=== PATIENT | female | born 1995 | race American Indian/Alaskan Native ===

== ENCOUNTER 2017-07-05 04:56 | Outpatient (CLI) | payer MEDICAID ==
[2017-07-05] MEDS ORDERED: LACTATED RINGERS 1,000 ML IV ONE (05:22)
[2017-07-05 05:41] LABS: Bilirubin,Urine NEG (Negative); Blood,Urine SM (Negative); Color,Urine Straw (Yellow); Mucus,Urine FEW /HPF; Protein,Urine <15 mg/dL mg/dL (Negative); Urobilinogen,Urine < 2.0 mg/dL (<2.0)
[2017-07-05] MEDS: LACTATED RINGERS 1,000 ML IV SCH ×2 (08:12→13:12)
--- NOTE | 2017-07-05 10:36 | Ultrasound Report ---
ULTRASOUND RENAL BILATERAL HISTORY: Left abdomen pain, left flank pain. TECHNIQUE: transabdominal ultrasound with color Doppler interrogation. FINDINGS: An intrauterine is identified cephalic position. Both kidneys are normal size, contour, position and echogenicity. No evidence for cystic disease, mass or shadowing calculus. There is moderate right hydronephrosis and mild left hydronephrosis. This is presumably secondary to extrinsic compression from the fetus. The bladder is unremarkable. IMPRESSION: Bilateral hydronephrosis as described.
[2017-07-05 20:16] VITALS: BP 120/80
[2017-07-05 20:32] LABS: Basophils # (Auto) 0.1 K/mm3 (0.0-0.1); Basophils % (Auto) 0.7 % (0.0-1.8); Eosinophils # (Auto) 0.3 K/mm3 (0.0-0.4); Eosinophils % (Auto) 3.4 % (0.0-4.3); Hematocrit 36.5 % (30.3-42.9); Hemoglobin 12.2 gm/dl (10.1-14.3); Lymphocytes # (Auto) 1.6 K/mm3 (1.2-5.4); Lymphocytes % (Auto) 20.3 % (13.4-35.0); Mean Corpuscular HGB Conc 34 % (30-34); Mean Corpuscular Hemoglobin 33 pg (28-32); Mean Corpuscular Volume 98 fl (79-97); Monocytes # (Auto) 0.7 K/mm3 (0.0-0.8); Monocytes % (Auto) 9.1 % (0.0-7.3); Platelet Count 162 K/mm3 (140-440); Red Blood Count 3.72 M/mm3 (3.65-5.03); Red Cell Distribution Width 13.3 % (13.2-15.2)
[2017-07-05 20:51] LABS: BUN/Creatinine Ratio 15; Blood Urea Nitrogen 6 mg/dL (7-17); Calcium 8.7 mg/dL (8.4-10.2); Hemolysis Index 3
== END 2017-07-05 21:23 | disposition home or self-care (01) ==
LOC: TRG 04:56 → LD 08:53 → TRG 21:23
PROVIDERS: ATTEND Obstetrics & Gynecology
DX: O99.89 Other specified diseases and conditions complicating pregnancy, childbirth and the puerperium (principal); N13.30 Unspecified hydronephrosis; Z3A.26 26 weeks gestation of pregnancy
CPT/HCPCS: 36415; 59025; 76770; 80048; 81001; 85025; 96360; 96361; J7120

== ENCOUNTER 2017-10-11 11:58 | Inpatient (IN) | payer MEDICAID ==
[2017-10-11] MEDS ORDERED: MINERAL OIL PO PRN (13:25)
[2017-10-11] MEDS ORDERED: XYLOCAINE 2% INFILTRATI ONE (13:25)
[2017-10-11] MEDS ORDERED: BRETHINE IVP PRN (13:25)
[2017-10-11] MEDS ORDERED: SUBLIMAZE IV PRN (13:25)
[2017-10-11] MEDS ORDERED: BRETHINE SUB-Q PRN (13:25)
[2017-10-11] MEDS ORDERED: STADOL IV PRN (13:25)
[2017-10-11] MEDS ORDERED: PITOCin/NS 20 UNIT/1000ML DRIP 20 UNITS/1,000 ML BAG IV SCH (14:00)
[2017-10-11] MEDS ORDERED: PITOCin/NS 30 UNIT/500ML 30 UNITS/500 ML BAG IV SCH ×2 (14:00)
[2017-10-11 14:43] LABS: Bacteria,Urine 1+ /HPF (Negative); Bilirubin,Urine NEG (Negative); Blood,Urine LG (Negative); Color,Urine Yellow (Yellow); Mucus,Urine FEW /HPF; Urobilinogen,Urine < 2.0 mg/dL (<2.0)
[2017-10-11 15:34] LABS: Hematocrit 43.7 % (30.3-42.9); Hemoglobin 14.9 gm/dl (10.1-14.3); Mean Corpuscular HGB Conc 34 % (30-34); Mean Corpuscular Hemoglobin 33 pg (28-32); Mean Corpuscular Volume 98 fl (79-97); Red Blood Count 4.46 M/mm3 (3.65-5.03); Red Cell Distribution Width 13.2 % (13.2-15.2)
[2017-10-11 15:36] LABS: Platelet Count 156 K/mm3 (140-440)
[2017-10-11 15:46] LABS: Alanine Aminotransferase 11 units/L (7-56); Uric Acid 5.6 mg/dL (3.5-7.6)
--- NOTE | 2017-10-11 17:26 | History and Physical Report ---
History of Present Illness Date of examination: 10/11/17 Date of admission: 10/11/17 11:58 Chief complaint: Sent from office for IOL History of present illness: 22yo AA Fe VINCENT 10/05/2017 (LMP) 40w6d, sent from OB office today for direct admit (decreased FM x3 days, Elevated blood pressure 144/101, Equivical NST. Pt initiated late care with [facility] at 14 weeks gestation. 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 She was treated for BV with Cleocin 2% cream 04/11/17. She was referred to [facility] (late care and SGA & HC<3%, however she never went. 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 denies: abnormal PAP smear, chlamydia, gonorrhea, hepatitis B, hepatitis C, HIV, syphilis, trichomonas Family/Genetic History: none Social history: no significant social history, single, lives with family, full code. denies: smoking, alcohol abuse, prescription drug abuse, IV drug use - Obstetrical History Expected Date of Delivery: 10/05/17 Actual Gestation: 40 Week(s) 6 Day(s) : 2 Para: 0 Hx # Term Pregnancies: 0 Number of Pregnancies: 0 Spontaneous Abortions: 1 Induced : 0 Number of Living Children: 0 Medications and Allergies Allergies Allergy/AdvReac Type Severity Reaction Status Date / Time No Known Allergies Allergy Unverified 01/13/14 15:47 Home Medications Medication Instructions Recorded Confirmed Last Taken Type Pnv95/Ferrous Fumarate/FA 1 each PO QDAY #30 tablet 01/13/14 07/05/17 07/03/17 Rx [ Vitamins] HYDROcodone/APAP 5-325 [[place] 1 each PO Q6HR PRN #20 tablet 07/05/17 Unknown Rx 5/325] Active Meds: Active Medications Butorphanol Tartrate (Stadol) 2 mg IV Q2H PRN PRN Reason: Pain , Severe (7-10) Ephedrine Sulfate (Ephedrine Sulfate) 10 mg IV Q2M PRN PRN Reason: Hypotension Fentanyl (Sublimaze) 100 mcg IV Q2H PRN PRN Reason: Labor Pain Lactated Ringer's (Lactated Ringers) 1,000 mls @ 125 mls/hr IV DIRECT DINO Oxytocin/Sodium Chloride (Pitocin/Ns 20 Unit/1000ml Drip) 20 units in 1,000 mls @ 125 mls/hr IV DIRECT DINO Oxytocin/Sodium Chloride (Pitocin/Ns 30 Unit/500ml) 30 units in 500 mls @ 2 mls /hr IV TITR DINO; Protocol Oxytocin/Sodium Chloride (Pitocin/Ns 30 Unit/500ml) 30 units in 500 mls @ 1 mls /hr IV TITR DINO; Protocol Mineral Oil (Mineral Oil) 30 ml PO QHS PRN PRN Reason: Constipation Terbutaline Sulfate (Brethine) 0.25 mg SUB-Q ONCE PRN PRN Reason: Hyperstimulation/Hypertonicity Terbutaline Sulfate (Brethine) 0.25 mg IVP ONCE PRN PRN Reason: Hyperstimulation/Hypertonicity Review of Systems Eyes: normal appearance Cardiovascular: no chest pain, no shortness of breath Respiratory: no shortness of breath Breasts: mass Gastrointestinal: no nausea, no vomiting, no diarrhea, no constipation Genitourinary: normal appearance, contractions, no vaginal discharge, no leakage of fluid, no dysuria, no genital sores Neurological: no headaches, no double vision - Vital Signs Vital signs: Vital Signs Pulse BP 121 H 135/89 10/11/17 12:39 10/11/17 12:39 Temp Pulse Resp BP Pulse Ox 98.1 F 99 H 16 133/88 10/11/17 13:40 10/11/17 13:25 10/11/17 13:40 10/11/17 13:25 - Physical Exam Breasts: Positive: normal Cardiovascular: Regular rate, Normal S1, Normal S2, No murmurs Lungs: Positive: Clear to auscultation, Normal air movement Abdomen: Positive: normal appearance, soft, normal bowel sounds, other (gravid) Genitourinary (Female): Positive: normal external genitalia, normal perenium Vulva: both: normal Vagina: Positive: normal moisture Uterus: Positive: enlarged (gravid) Anus/Rectum: Positive: normal perianal skin Extremities: Positive: normal Deep Tendon Reflex Grade: Normal +2 - Obstetrical FHR: auscultation normal, category 1 Uterine Contraction Monitor Mode: External Cervical Dilatation: 3 Cervical Effacement Percentage: 80 station: -2 Uterine Contraction Pattern: Irregular Uterine Tone Measurement Phase: Resting Uterine Contraction Intensity: Mild Results Result Diagrams: 10/11/17 15:13 10/11/17 15:13 Abnormal lab results 10/11/17 10/11/17 10/11/17 Range/Units 14:08 15:13 15:13 Hgb 14.9 H (10.1-14.3) gm/dl Hct 43.7 H (30.3-42.9) % MCV 98 H (79-97) fl MCH 33 H (28-32) pg Creatinine 0.6 L (0.7-1.2) mg/dL Lactate Dehydrogenase 230 H (91-180) units/L Urine WBC (Auto) 40.0 H (0.0-6.0) /HPF All other labs normal. Assessment and Plan A: Term IUP at 40w6d Elevated B/P Category 1 tracing GBS Negative P: Admit to L&D Pitocin IOL PIH labs Anticipate
[2017-10-12] MEDS: LACTATED RINGERS 1,000 ML IV SCH ×2 (00:15→05:02)
[2017-10-12] MEDS ORDERED: fentaNYL-BUPIV 2 MCG/ML-0.125% 200 MCG/100 ML BAG EPIDURAL ONE (06:20)
[2017-10-12] MEDS ORDERED: NARCAN 2 MG/2 ML IV PRN (06:28)
[2017-10-12] MEDS ORDERED: fentaNYL-BUPIV 2 MCG/ML-0.125% 200 MCG/100 ML BAG EPIDURAL SCH (07:00)
--- NOTE | 2017-10-12 09:00 | Procedure Note ---
OB Delivery Note - Delivery Date of Delivery: 10/12/17 Surgeon: LANDY POWERS Estimated blood loss: 200cc - Vaginal Delivery presentation: vertex Delivery position: OA Intrapartum events: meconium, mult.variable deceleratio Delivery induction: oxytocin Delivery augmentation: rupture of membranes, pitocin Delivery monitor: external FHT, external uterine Route of delivery: Delivery placenta: spontaneous Delivery cord: 3 umbilical vessels Episiotomy: none Delivery laceration: 1st degree, vaginal side wall Delivery repair: vicryl Anesthesia: epidural Delivery comments: delivered OA and placed on Mom's chest for [id number] bonding and delayed cord clamping, cut by GrandMa - Infant A at 1 minute: 8 at 5 minutes: 9 Infant Gender: Male (3136gms)
[2017-10-12] MEDS ORDERED: PHENERGAN PO PRN (09:04)
[2017-10-12] MEDS ORDERED: PHENERGAN PR PRN (09:04)
[2017-10-12] MEDS ORDERED: TUCKS PAD TP PRN (09:04)
[2017-10-12] MEDS ORDERED: LANSINOH TP PRN (09:04)
[2017-10-12] MEDS ORDERED: MILK OF MAGNESIA PO PRN (09:04)
[2017-10-12] MEDS ORDERED: NORCO 5/325 PO PRN (09:04)
[2017-10-12] MEDS ORDERED: ZOFRAN IV PRN (09:04)
[2017-10-12] MEDS ORDERED: METHERGINE IM ONE (09:21)
[2017-10-12] MEDS ORDERED: BENADRYL PO PRN (09:30)
[2017-10-12] MEDS ORDERED: TYLENOL PO PRN (09:30)
[2017-10-12] MEDS ORDERED: DULCOLAX PR PRN (10:00)
[2017-10-12] MEDS ORDERED: PITOCin/NS 20 UNIT/1000ML DRIP 20 UNITS/1,000 ML BAG IV SCH (10:00)
[2017-10-12] MEDS ORDERED: SODIUM CHLORIDE FLUSH SYRINGE 10 ML IV SCH (10:00)
[2017-10-12 20:26] LABS: Hematocrit 39.6 % (30.3-42.9); Hemoglobin 13.5 gm/dl (10.1-14.3)
[2017-10-12] MEDS: COLACE PO SCH (22:00)
[2017-10-12] MEDS: FEOSOL PO SCH (22:00)
[2017-10-13] MEDS: MOTRIN PO SCH ×3 (02:59→17:51)
[2017-10-13] MEDS ORDERED: BOOSTRIX IM ONE (06:04)
[2017-10-13] MEDS ORDERED: M-M-R II VACCINE SUB-Q ONE (09:04)
[2017-10-13] MEDS: PRENATAL VITAMIN PO SCH (11:27)
[2017-10-13] MEDS: FEOSOL PO SCH ×2 (11:27→22:35)
[2017-10-13] MEDS: COLACE PO SCH ×2 (11:33→21:35)
--- NOTE | 2017-10-13 11:59 | Progress Note ---
Assessment and Plan A: day 1 S/P . Elevated blood pressure. P: Preeclamptic labs. Labetalol 200 mg po BID. Subjective - Subjective Date of service: 10/13/17 Principal diagnosis: day 1 S/P Interval history: day 1 S/P . Patient has had several elevated blood pressures today. Patient reports a history of elevated blood pressures late in her but states she was not taking any medications for this. Patient denies ROMERO, visual disturbance, edema, abdominal or epigastric pain, or nausea. Will order preE labs and will start pt. on Labetalol. Patient reports small amount of lochia. She is voiding without difficulty and tolerating a regular diet. Patient denies leg pain, chest pain, shortness of breath, or heavy vaginal bleeding. Patient reports: appetite normal, voiding normally, pain well controlled, flatus , ambulating normally : doing well Objective - Vital Signs Latest vital signs: Vital Signs Temp Pulse Resp BP BP Pulse Ox 10/13/17 11:32 157/102 10/13/17 07:49 98.3 F 69 20 142/101 96 10/13/17 01:00 98.5 F 76 20 136/56 10/12/17 20:00 98.2 F 62 22 143/80 10/12/17 19:13 99.3 F 75 20 145/90 99 10/12/17 15:56 98.0 F 95 H 20 149/89 100 10/12/17 13:10 98.6 F Intake and Output 10/12/17 10/13/17 10/13/17 23:59 07:59 15:59 Intake Total 920 600 Balance 920 600 Intake: Oral 560 Intake, Free Water 360 600 Other: Total, Intake Amount 320 Voiding Method Toilet # Voids 2 Void 2 - Exam Breasts: Present: deferred Cardiovascular: Present: Regular rate, Normal S1, Normal S2, No murmurs Lungs: Present: Clear to auscultation Abdomen: Present: normal appearance, soft, normal bowel sounds. Absent: distention, tenderness, guarding, rigidity Uterus: Present: normal, firm, fundal height below umbilicus. Absent: bogginess , tenderness Extremities: Present: normal
[2017-10-13] MEDS: NORMODYNE PO SCH ×2 (13:08→21:35)
[2017-10-13 16:05] LABS: Basophils % (Auto) 0.4 % (0.0-1.8); Eosinophils # (Auto) 0.5 K/mm3 (0.0-0.4); Hemoglobin 13.1 gm/dl (10.1-14.3); Lymphocytes # (Auto) 2.3 K/mm3 (1.2-5.4); Lymphocytes % (Auto) 20.6 % (13.4-35.0); Mean Corpuscular HGB Conc 34 % (30-34); Mean Corpuscular Hemoglobin 34 pg (28-32); Mean Corpuscular Volume 100 fl (79-97); Monocytes % (Auto) 8.7 % (0.0-7.3); Platelet Count 139 K/mm3 (140-440); Red Cell Distribution Width 13.2 % (13.2-15.2)
[2017-10-13 16:34] LABS: Bilirubin,Urine NEG (Negative); Blood,Urine SM (Negative); Color,Urine Straw (Yellow); Mucus,Urine FEW /HPF; Protein,Urine <15 mg/dL mg/dL (Negative); Urobilinogen,Urine < 2.0 mg/dL (<2.0)
[2017-10-13 16:50] LABS: Alanine Aminotransferase 11 units/L (7-56); Albumin 2.7 g/dL (3.9-5); BUN/Creatinine Ratio 14; Blood Urea Nitrogen 10 mg/dL (7-17); Calcium 9.4 mg/dL (8.4-10.2); Hemolysis Index 30
[2017-10-14] MEDS: MOTRIN PO SCH ×4 (00:20→18:20)
--- NOTE | 2017-10-14 09:37 | Progress Note ---
Assessment and Plan A: day 2 S/P spontaneous vaginal delivery. P: Discharge patient home today. discharge instructions and warning signs were discussed with patient in detail. Advised pt. to avoid intercourse, avoid lifting and heavy chores, and avoid driving. Advised patient to continue taking her vitamins and iron supplements. Advised patient to take Labetalol 200 mg po BID and follow up at [facility] this week to recheck her blood pressure. Rx Labetalol 200 mg, #60, 1 po BID called to [facility] pharmacy on [address] BP warning signs discussed with patient. Pt. voiced understanding of all instructions. Subjective - Subjective Date of service: 10/14/17 Principal diagnosis: day 2 S/P Interval history: day 2 S/P . Patient is doing well. She desires to be discharged today. Patient's BPs have been well controlled on Labetalol 200 mg po BID. Patient denies headache, visual disturbance, chest pain, cough, shortness of breath, abdominal or epigastric pain, nausea or vomiting, leg pain, heavy vaginal bleeding, swelling, or symptoms of depression. Patient is undecided what she wants to use for contraception. Patient reports: appetite normal, voiding normally, pain well controlled, flatus , ambulating normally [place]: doing well Objective - Vital Signs Latest vital signs: Vital Signs Temp Pulse Resp BP BP Pulse Ox 10/14/17 08:19 98.4 F 75 20 146/86 95 10/14/17 06:02 98.0 F 64 18 132/89 98 10/14/17 04:00 98.5 F 61 18 121/75 10/14/17 02:55 98.5 F 60 18 129/71 10/14/17 00:02 98.5 F 73 18 124/82 10/13/17 22:30 98.3 F 58 L 18 131/55 10/13/17 21:35 64 155/90 10/13/17 16:01 98.0 F 74 16 148/76 97 10/13/17 13:08 157/102 10/13/17 11:32 157/102 Intake and Output 10/13/17 10/14/17 10/14/17 23:59 07:59 15:59 Intake Total 360 600 Balance 360 600 Intake: Oral 360 Intake, Free Water 600 Other: Total, Intake Amount 360 # Voids Void 4 1 # Bowel Movements 0 - Exam Cardiovascular: Present: Regular rate, Normal S1, Normal S2, No murmurs Lungs: Present: Clear to auscultation Abdomen: Present: normal appearance, soft, normal bowel sounds. Absent: distention, tenderness, guarding, rigidity Uterus: Present: normal, firm, fundal height below umbilicus. Absent: bogginess , tenderness Extremities: Present: normal. Absent: tenderness, edema - Labs Labs: Abnormal lab results 10/13/17 10/13/17 Range/Units 15:44 15:44 WBC 11.3 H (4.5-11.0) K/mm3 MCV 100 H (79-97) fl MCH 34 H (28-32) pg Plt Count 139 L (140-440) K/mm3 [place] % (Auto) 8.7 H (0.0-7.3) % [place] # 1.0 H (0.0-0.8) K/mm3 Eos # 0.5 H (0.0-0.4) K/mm3 Carbon Dioxide 20 L (22-30) mmol/L Alkaline Phosphatase 182 H (35-129) units/L Total Protein 5.6 L (6.3-8.2) g/dL Albumin 2.7 L (3.9-5) g/dL
[2017-10-14] MEDS: PRENATAL VITAMIN PO SCH (11:03)
[2017-10-14] MEDS: FEOSOL PO SCH ×2 (11:03→21:21)
[2017-10-14] MEDS: COLACE PO SCH ×2 (11:03→21:22)
[2017-10-14] MEDS: NORMODYNE PO SCH ×2 (11:03→18:20)
--- NOTE | 2017-10-14 11:31 | Discharge Summary ---
Providers - Providers Date of Admission: 10/11/17 11:58 Date of discharge: 10/14/17 Attending physician: RUSS LOUIS MD Primary care physician: RUSS LOUIS MD Hospitalization Reason for admission: active labor Delivery: Episiotomy: none complications: none Discharge diagnosis: IUP at term delivered [place] baby: male Pertinent studies: Labs Hospital course: Normal hospital course. Condition at discharge: Good Disposition: DC-01 TO HOME OR SELFCARE - Discharge Diagnoses (1) Term delivered Status: Acute Plan - Provider Discharge Summary Activity: routine, no sex for 6 weeks, no heavy lifting 4 weeks Diet: routine Instructions: routine Additional instructions: Take Labetalol 200 mg po BID (Rx has been called to [facility] on [address] ). Continue vitamins and iron at home. Follow up at [facility] this week. Call your doctor immediately for: * Fever > 100.5 * Heavy vaginal bleeding ( >1 pad per hour) * Severe persistent headache * Shortness of breath * Reddened, hot, painful area to leg or breast - Follow up plan Follow up: RUSS LOUIS MD [Primary Care Provider] - 48 Hours Forms: [facility] Discharge Summary, Work/School Excuse Out Patient
--- NOTE | 2017-10-14 17:24 | Event Note ---
Date: 10/14/17 Patient's BPs increased just prior to time for discharge. Discharge order cancelled. Labetalol increased to 300 mg po BID. Pt. denies headache, visual disturbance, swelling, N/V, or abdominal pain. Labs negative. Will postpone discharge until tomorrow due to hypertension. Discussed with patient and family. Informed Dr. Austin re: elevated blood pressure and interventions taken.
[2017-10-15] MEDS: NORMODYNE PO SCH (06:13)
--- NOTE | 2017-10-15 10:02 | Event Note ---
Date: 10/15/17 Ms. Cortez blood pressures are currently stable on Labetalol 300mg PO BID. Her last BP was 130/82. She denies headache, visual disturbances or RUQ pain. The plan is to discharge her home today, Continue taking Labetalol 300mg by mouth twice daily andn follow-up at [facility] in 1 week for BP check. I reviewed warning signs with the patient. All questions answered. Pt voiced understanding.
[2017-10-15] MEDS: MOTRIN PO SCH (12:14)
[2017-10-15] MEDS: PRENATAL VITAMIN PO SCH (12:14)
[2017-10-15] MEDS: COLACE PO SCH (12:14)
[2017-10-15] MEDS: FEOSOL PO SCH (12:15)
[2017-10-15] MEDS ORDERED: M-M-R II VACCINE SUB-Q ONE (13:00)
[2017-10-15] MEDS ORDERED: BOOSTRIX IM ONE (13:00)
[2017-10-15 17:15] VITALS: BP 140/99
== END 2017-10-15 18:05 | disposition home or self-care (01) | DRG 774 ==
LOC: LD 11:58 → APU 10-12 11:17 → OB 10-12 15:55
PROVIDERS: ADMIT Obstetrics & Gynecology; ATTEND Obstetrics & Gynecology
PROC: 10E0XZZ Delivery of Products of Conception, External Approach (ICD-10-PCS; principal; 2017-10-12)
PROC: 0HQ9XZZ Repair Perineum Skin, External Approach (ICD-10-PCS; 2017-10-12)
PROC: 3E0234Z Introduction of Serum, Toxoid and Vaccine into Muscle, Percutaneous Approach (ICD-10-PCS; 2017-10-12)
PROC: 3E033VJ Introduction of Other Hormone into Peripheral Vein, Percutaneous Approach (ICD-10-PCS; 2017-10-12)
PROC: 3E0R3BZ Introduction of Anesthetic Agent into Spinal Canal, Percutaneous Approach (ICD-10-PCS; 2017-10-12)
PROC: 00HU33Z Insertion of Infusion Device into Spinal Canal, Percutaneous Approach (ICD-10-PCS; 2017-10-12)
DX: O36.8130 Decreased fetal movements, third trimester, not applicable or unspecified (principal); O16.4 Unspecified maternal hypertension, complicating childbirth; O76 Abnormality in fetal heart rate and rhythm complicating labor and delivery; Z3A.40 40 weeks gestation of pregnancy; Z37.0 Single live birth; Z23 Encounter for immunization; O77.0 Labor and delivery complicated by meconium in amniotic fluid; O99.52 Diseases of the respiratory system complicating childbirth; J45.909 Unspecified asthma, uncomplicated; Z79.899 Other long term (current) drug therapy; O98.52 Other viral diseases complicating childbirth; B00.9 Herpesviral infection, unspecified; O70.0 First degree perineal laceration during delivery
CPT/HCPCS: 36415; 80053; 81001; 82565; 83615; 84450; 84460; 84550; 85014; 85018; 85025; 85027; 85049; 86592; 86850; 86900; 86901; 90715; 99211; A6250; G0463; J0595; J2210; J2590; J7120

== ENCOUNTER 2020-06-07 23:24 | Emergency (ER) | payer SELFPAY ==
[2020-06-08 00:42] VITALS: BP 141/83
[2020-06-08] MEDS ORDERED: traMADol 50 MG TAB PO ONE (00:42)
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
== END 2020-06-08 01:05 | disposition home or self-care (01) ==
LOC: ED 23:24
DX: S29.011A Strain of muscle and tendon of front wall of thorax, initial encounter (principal); S46.912A Strain of unspecified muscle, fascia and tendon at shoulder and upper arm level, left arm, initial encounter; J45.909 Unspecified asthma, uncomplicated; Z79.899 Other long term (current) drug therapy; V49.9XXA Car occupant (driver) (passenger) injured in unspecified traffic accident, initial encounter; Y93.89 Activity, other specified; Y92.89 Other specified places as the place of occurrence of the external cause; Y99.8 Other external cause status
CPT/HCPCS: 99282